=== PATIENT | female | born 1960 | race Caucasian/White ===

== ENCOUNTER 2016-08-02 14:19 | Inpatient (IN) | payer MEDICARE, MEDICAID ==
[2016-08-02] MEDS ORDERED: LORAZEPAM 2 MG/ML 1ML SDV ONE (15:19)
[2016-08-02 15:58] LABS: ABSOLUTE NEUTROPHIL COUNT 6.9 K/mm3 (1.8-7.7); BASO % 0.4 % (0.2-1.0); EOS # 0.1 (0.0-0.5); EOS % 0.9 % (0.9-2.9); HEMATOCRIT 30.3 % (37.0-47.0); HEMOGLOBIN 10.1 gm/l (12.0-16.0); IMM NEUT # 0.1 K/mm3 (0-0.2); IMM NEUT% 0.8 % (0-1); LYMPH # 1.8 (1.0-4.8); LYMPH % 19.5 % (15-45); MEAN CELL VOLUME 98.7 fl (81.0-99.0); MEAN CORPUSCULAR HEMOGLOBIN 32.9 pg (27.0-31.0); MEAN CORPUSCULAR HGB CONC 33.3 g/dl (33.0-37.0); MEAN PLATELET VOLUME 11.1 fl (7.4-10.4); MONO # 0.4 (0.0-0.8); MONO % 4.4 % (4-12); PLATELET COUNT 179 K/mm3 (130-400); RED CELL DISTRIBUTION WIDTH 13.3 % (11.5-14.5)
[2016-08-02 16:13] LABS: URINE BILIRUBIN NEGATIVE (NEGATIVE); URINE BLOOD TRACE (NEGATIVE); URINE GLUCOSE (UA) NEGATIVE (NEGATIVE); URINE LEUKOCYTE ESTERASE NEGATIVE (NEGATIVE); URINE NITRITE NEGATIVE (NEGATIVE); URINE PROTEIN 1+ (NEGATIVE); URINE UROBILINOGEN NORMAL (0-1 mg/dl)
[2016-08-02 16:18] LABS: ALB/GLOB RATIO 1.6 (>1.0); ALBUMIN 3.8 gm/dL (3.5-5.7); CALCIUM 8.9 mg/dL (8.6-10.3); MAGNESIUM 1.3 mg/dL (1.9-2.7)
[2016-08-02 16:21] LABS: URINE APPEARANCE CLEAR; URINE COLOR YELLOW
[2016-08-02 16:23] LABS: TROPONIN I 0.04 ng/ml (0.0-0.06)
[2016-08-02 16:27] LABS: CKMB ISOENZYME 26.6 ng/ml (0.6-6.3)
[2016-08-02 16:33] LABS: URINE BACTERIA RARE; URINE EPITHELIAL CELLS 0-2 /hpf; URINE RBC 0 /hpf; URINE WBC 0-2 /hpf
[2016-08-02 16:34] LABS: URINE AMORPHOUS SEDIMENT MODERATE; URINE CASTS FEW HYLINE CASTS /lpf
--- NOTE | 2016-08-02 16:54 | CT ---
HEAD W/O CON COMPARISON: None HISTORY: Altered mental status. Confusion. Past medical history of carcinoid tumor 2002 and sinus surgery 1991 TECHNIQUE: Using a [employer] Aquilion [address] scanner, images were obtained through the head. An automated dose reduction technique was used to minimize patient radiation dose. DOSE INFORMATION: CTDIvol (mGy): 51.70 DLP(mGycm): 938.90 FINDINGS: Mass: None Intracranial Hemorrhage: None Acute Infarction: None Cerebral hemispheres: Normal Basal ganglia: Normal Thalami: Normal Brainstem: Normal Cerebellum: Normal Ventricles: Normal Basilar cisterns: Normal Corpus callosum: Normal Pituitary fossa: Normal Middle ears and mastoid air cells: Normal Orbits and sinuses: Normal orbits. Postoperative changes in the paranasal sinuses. Skull and scalp: Normal Dural sinuses and vessels: Normal IMPRESSION: Normal study. Incidentally noted postoperative changes in the paranasal sinuses. The report was sent to the emergency department [employer] medical record system 08/02/2016 at 16:55
--- NOTE | 2016-08-02 16:54 | CT ---
ABD/PELVIS W/O CON COMPARISON: Ultrasound of the abdomen, 10/28/2007 HISTORY: Abdominal pain, confusion, and jaundice. Technique: Using a [employer] Aquilion [address] scanner, images were obtained from the diaphragm to the floor the pelvis. No intravenous contrast. An automated dose reduction technique was used to minimize patient radiation dose. Dose: CTDIvol (mGy): 34.20 DLP(mGycm): 1711.30 FINDINGS: Lung bases: Normal Inferior mediastinum and heart: Cardiomegaly. Liver: Normal Gallbladder: Distended. No stones. No wall thickening. No edema in the adjacent fat. Bile ducts: Normal. Pancreas: Normal Spleen: Normal Adrenal glands: Mild hypertrophy bilaterally. Kidneys: Bilateral vascular calcifications. Normal size and shape. No hydronephrosis. Ureters: Normal Urinary bladder: Normal Uterus and adnexa: Normal Blood vessels: Atherosclerosis of the aorta and branches in the abdomen and the pelvis. No aneurysm. Lymph nodes: Normal Stomach: Normal Duodenum: Normal Small intestine: Normal Appendix: Not visible. Colon: Normal Abdominal wall and supporting musculature: Fat-containing mild umbilical hernia. Bones: Degenerative changes throughout the spine. IMPRESSION: 1. No acute finding. 2. The gallbladder is distended without evidence of stones or inflammation. The bile ducts are not dilated. 3. Mild hypertrophy of the adrenal glands. 4. Atherosclerosis of the aorta and its branches in the abdomen and the pelvis. 5. Fat-containing umbilical hernia. 6. Nonvisualization of the appendix. Report was sent to the emergency department [employer] medical record system 08/02/2016 at 16:55
[2016-08-02] MEDS ORDERED: MAGNESIUM SULFATE 2 G/50 ML 50 ML IV ONE (17:30)
[2016-08-02] MEDS ORDERED: BLISTEX LIPSTICK 1 EACH TP PRN (19:29)
[2016-08-02] MEDS ORDERED: MENTHOL/CETYLPYRD 1 EACH LOZENGE PO PRN (19:29)
[2016-08-02] MEDS ORDERED: MAGNESIUM HYDROXIDE 30 ML UDCUP PO PRN (19:29)
[2016-08-02] MEDS ORDERED: SODIUM CHLORIDE 0.9% 100 ML IV PRN (19:29)
[2016-08-02] MEDS ORDERED: BISACODYL 5 MG TABLET.EC PO PRN (19:29)
[2016-08-02] MEDS ORDERED: BISACODYL 10 MG SUP PR PRN (19:29)
[2016-08-02] MEDS ORDERED: SODIUM CHLORIDE 0.9% 1,000 ML IV SCH (19:30)
[2016-08-02 20:28] LABS: INR 0.96; PROTHROMBIN TIME 10.1 SECONDS (9.3-11.4)
[2016-08-02] MEDS ORDERED: PUMP TUBING ONE (20:31)
[2016-08-02 20:39] LABS: AMPHETAMINES/METHAMPHETAMINES POSITIVE (NEGATIVE); COCAINE NEGATIVE (NEGATIVE); MARIJUANA POSITIVE (NEGATIVE); METHADONE NEGATIVE (NEGATIVE); OPIATES NEGATIVE (NEGATIVE); TRICYCLIC ANTIDEPRESSANTS NEGATIVE (NEGATIVE)
[2016-08-02 20:50] VITALS: BMI 39.9
[2016-08-02] MEDS ORDERED: HALOPERIDOL LACTATE 5 MG/1 ML AMP IV PRN (22:08)
[2016-08-02] MEDS: POTASSIUM CHLORIDE 10 MEQ in SODIUM CHLORIDE 0.9% 1,000 ML IV SCH (22:15)
[2016-08-02] MEDS: DOCUSATE SODIUM 100 MG CAPSULE PO SCH (22:16)
[2016-08-02] MEDS: CLOTRIMAZOLE 1% 15 APPLIC/15 G CREAM TP SCH (22:44)
[2016-08-03] MEDS: POTASSIUM CHLORIDE 10 MEQ in SODIUM CHLORIDE 0.9% 1,000 ML IV SCH ×3 (02:41→08:37)
[2016-08-03] MEDS ORDERED: METOPROLOL TARTRATE 1 MG/ML 5ML VIAL ONE (02:43)
[2016-08-03] MEDS ORDERED: OXYCODONE HCL 5 MG TABLET PO ONE (05:39)
[2016-08-03] MEDS ORDERED: METOPROLOL TARTRATE 1 MG/ML 5ML VIAL IV SCH ×2 (06:00→09:00)
[2016-08-03] MEDS ORDERED: FLU VACC 2016-17 (36MO-64Y)/PF 60 MCG/0.5 ML SYRINGE IM V ONE (07:14)
[2016-08-03] MEDS ORDERED: PNEUMOCOCCAL 23-VAL P-SAC VAC 0.5 ML VIAL IM V ONE (07:14)
--- NOTE | 2016-08-03 07:25 | HP ---
ALLEN VALDEZ [id number] : 60 DATE OF ADMISSION: August 02, 2016 IDENTIFICATION: Ms. Valdez is a 56-year-old followed by Krystal Soto M.D. CHIEF COMPLAINT: Altered mental status. HISTORY OF PRESENT ILLNESS: Ms. Valdez was brought to the [facility] Emergency Room by her roommates due to report of delusions. She has apparently been thinking her cat has when her cat is alive and well sitting next to her. She has reportedly had difficulty tracking conversation. At the time of my exam, she is really unable to provide any history. She is somnolent, rouses and mumbles responses, mostly unintelligible. This is after receiving 2 mg of lorazepam in the emergency department. On workup in the emergency department, she was found to have acute kidney injury, hypokalemia, hypomagnesemia, anemia, rhabdomyolysis and elevated liver enzymes. She was treated only with IV magnesium and lorazepam and then referred to the hospitalist service. REVIEW OF SYSTEMS: Unable to obtain due to the patient's mental status. PAST MEDICAL HISTORY: Is limited, however, previous records indicate: 1. She had a carcinoid tumor excised in 2002. 2. Reported hypertension. 3. Reported hypothyroidism. 4. She does have obesity. PAST SURGICAL HISTORY: 1. Carcinoid tumor excision [id number]. I am not aware of the location of that tumor. 2. Sinus surgery in 1991. 3. Likely appendectomy. ALLERGIES: REPORTED TO MULTIPLE MEDICATIONS INCLUDIN. ASPIRIN. 2. IBUPROFEN. 3. CODEINE. 4. NEURONTIN. 5. SULFA DRUGS. CURRENT MEDICATIONS: Unknown. She has previously been treated with metoprolol. HABITS: Emergency room records indicate marijuana and tobacco use and social alcohol use. SOCIAL HISTORY: She lives in a house in [place] with housemates. fishing worker in the emergency department spoke with the patient's roommate, Demetris Smith, who reported that patient's mental health has been declining for at least two weeks. That she has been talking to the wall and isolating herself. A Home Health provider from [facility], Shilpa, reported that patient has not slept for three days and has been delusional. There is also suggestion that she has been referred to Hospice. I did place a call to [facility]. She is not on service with them either for Hospice or palliative care. FAMILY HISTORY: Unknown. PHYSICAL EXAMINATION: GENERAL: This is an obese, somnolent 56-year-old. She does appear jaundiced. As above, she rouses to questions, mumbles answers, partially follows directions, but is mostly unintelligible. HEENT: Atraumatic. She does not keep her eyes open for exam. Oropharynx appears moist. CHEST: Clear with poor air movement. HEART: Regular. ABDOMEN: Obese, soft. Appears to have mild diffuse tenderness, no guarding or rebound. Liver is palpably enlarged. Bowel sounds are active. EXTREMITIES: Trace peripheral pulses, no edema. INTEGUMENT: She is jaundiced and has petechiae on her abdomen and arms, erythema on the medial thighs, lower extremities and extremely thick calluses on the bottoms of the feet as well as onychomycosis. NEUROLOGIC: She does move all of her extremities to command but does not otherwise participate with exam. LABORATORY DATA: White blood cell count is 9.3, hemoglobin and hematocrit 10.1 and 30.3, platelets 179. Lactate 1.1, sodium 137, potassium low at 2.9, chloride 98, CO2 27, BUN 28, creatinine 2.6, glucose 112, magnesium is 1.3, total bilirubin 2.5, AST 81, ALT 202, alkaline phosphatase 132, CPK is elevated at 963, MB fraction 26.6, troponin I is 0.04. Protein is low at 6.2, albumin 3.8, lipase normal at 11. Ammonia level is pending. TSH is pending. Prothrombin time pending. Drug screen on the urine and acute viral hepatitis panel are pending. Urinalysis, specific gravity 1.020, 1+ protein, negative glucose and ketones, negative nitrite and leukocyte esterase. There are a few hyaline casts. RADIOLOGY: 1. CT of the brain is normal with incidental note of previous sinus surgery. 2. CT of the abdomen and pelvis is non-acute. There is gallbladder distention without biliary duct distention and no stones. Mild adrenal gland hypertrophy. Atherosclerosis. Fat containing umbilical hernia. Absent appendix. ASSESSMENT: Ms. Valdez is a 56-year-old who presents with acute metabolic encephalopathy of uncertain etiology. She has acute kidney injury, rhabdomyolysis, hypokalemia, hypomagnesemia, acute hepatitis and anemia. She has underlying obesity with a history of hypothyroidism and carcinoid tumor and extensive dermatitis. PLAN: 1. Admit to medical/surgical floor. 2. IV hydration with normal saline and gentle potassium replacement given her acute renal failure. 3. Follow up on pending laboratories as noted above. 4. Repeat chemistry panel, CBC, magnesium and CPK in the morning. 5. Social work consult. She may need psychiatric care once her acute medical issues have improved. 6. Code status is unidentified and will therefore be FULL CODE by default. 7. Venous thromboembolism prophylaxis with mechanical means only. Given her renal failure, pharmacologic treatment is contraindicated. cc: Krystal Soto M.D.
[2016-08-03] MEDS: CLOTRIMAZOLE 1% 15 APPLIC/15 G CREAM TP SCH (08:50)
[2016-08-03] MEDS: DOCUSATE SODIUM 100 MG CAPSULE PO SCH (08:56)
[2016-08-03] MEDS ORDERED: LEVOTHYROXINE SODIUM 100 MCG VIAL IV SCH (10:00)
[2016-08-03 12:29] VITALS: BP 149/98
[2016-08-03 12:38] LABS: ABSOLUTE NEUTROPHIL COUNT 8.9 K/mm3 (1.8-7.7); BASO # 0.1 K/mm3 (0.0-0.2); BASO % 0.7 % (0.2-1.0); EOS # 0.1 (0.0-0.5); HEMOGLOBIN 10.9 gm/l (12.0-16.0); IMM NEUT # 0.1 K/mm3 (0-0.2); IMM NEUT% 0.7 % (0-1); LYMPH # 2.4 (1.0-4.8); LYMPH % 20.2 % (15-45); MEAN CELL VOLUME 103.2 fl (81.0-99.0); MEAN CORPUSCULAR HEMOGLOBIN 32.2 pg (27.0-31.0); MEAN CORPUSCULAR HGB CONC 31.1 g/dl (33.0-37.0); MEAN PLATELET VOLUME 11.2 fl (7.4-10.4); MONO # 0.5 (0.0-0.8); MONO % 4.1 % (4-12); NEUT % 73.3 % (43-75); PLATELET COUNT 217 K/mm3 (130-400); RED CELL DISTRIBUTION WIDTH 13.7 % (11.5-14.5)
[2016-08-03 12:49] LABS: ALB/GLOB RATIO 1.4 (>1.0); ALBUMIN 3.8 gm/dL (3.5-5.7); CALCIUM 8.1 mg/dL (8.6-10.3); MAGNESIUM 1.9 mg/dL (1.9-2.7)
[2016-08-03] MEDS ORDERED: AMLODIPINE BESYLATE 5 MG TABLET PO ONE (14:52)
[2016-08-03] MEDS ORDERED: POTASSIUM CHLORIDE 20 MEQ TAB.PRT.SR PO ONE (14:59)
--- NOTE | 2016-08-03 18:54 | DS ---
ALLEN VALDEZ [id number] DATE OF ADMISSION: August 02, 2016 DATE OF DISCHARGE: August 03, 2016 DISCHARGE DIAGNOSES: Acute metabolic encephalopathy, multifactorial, probably due to sleep deprivation and methamphetamine abuse. OTHER DIAGNOSES: Include: 1. Acute hepatitis, etiology unclear. 2. Acute kidney injury likely due to dehydration. 3. Mild rhabdomyolysis. 4. Hypokalemia. 5. Hypomagnesemia. 6. Mild macrocytic anemia. 7. Tinea cruris. SUMMARY OF ADMISSION AND HOSPITAL COURSE: The patient is a 56-year-old female brought to the [facility] Emergency Department because of some delusional behavior and somnolence while at home. Workup in the emergency department showed her to be somnolent and mostly unintelligible. She received some lorazepam and workup showed evidence of acute kidney injury with a creatinine elevated 2.6 and elevation in her transaminase levels with a total bilirubin of 2.5, AST of 81, ALT of 202. Cardiac enzymes were negative. Ammonia level was normal, and a TSH level was markedly elevated off the scale at over 100. She was admitted by the hospitalist service. She was hydrated and with hydration alone along with potassium replacement and a good night's sleep, she had improvement in her encephalopathy. The following day she was alert and oriented and insisted on being discharged. She did receive a dose of levothyroxine 200 mcg IV and some additional potassium replacement. She was evaluated by our physical therapy and occupational therapy department and shown to be independent with her activities of daily living. Her creatinine had improved from 2.6 down to 1.8 with hydration. Potassium had increased from 2.9 up to 3.4 with replacement. CPK level had decreased from 963 down to 575 with hydration. Her hemoglobin remained stable and was up to 10.9 on the day of discharge. Urinalysis was negative for any evidence of infection. She had a CT of her abdomen and pelvis on admission showing no acute abnormalities. Gallbladder was slightly distended but no stones or biliary duct dilation was seen. CT of the brain showed no acute abnormalities. She was essentially medically stable on August 03, 2016. I had anticipated keeping her another day to await her hepatitis serologies and follow her liver function tests, but the patient's insistence on going home led me to discharge her after physical therapy evaluations. She has ongoing social concerns about medication compliance. I was unable to confirm her thyroid medication dose, but she discharged with her son who will check her medications at home. She is also getting a Home Health referral for nursing, social work case manager to assess medication compliances and her living situation. PHYSICAL EXAM: VITAL SIGNS: Her discharge vital signs showed a temperature of 98.3, pulse 65, blood pressure is 149/98, respirations 18, oxygen saturation 96% on room air. Body mass index 39.2. Weight 94 kilograms. GENERAL: This is an obese female in no acute distress. HEENT: Is unremarkable. NECK: Supple without lymphadenopathy or thyromegaly. LUNGS: Are clear to auscultation bilaterally. CARDIOVASCULAR: Exam reveals a regular rate and rhythm without a murmur. ABDOMEN: Is soft, nontender, nondistended with positive bowel sounds. EXTREMITIES: Show mild nonpitting edema. LABORATORY STUDIES: Showed a TSH level over 100, creatinine of 1.8, potassium 3.4, total bilirubin 2.4, AST down to 72, ALT down to 174. Laboratory studies pending at the time of this dictation is an acute hepatitis series. DISPOSITION: Home. REFERRALS: Referral was made to [facility] as stated above. She is instructed to follow up with her primary care physician, Rosetta Mittal with the [facility]. DISCHARGE MEDICATIONS: 1. I did not prescribe levothyroxine because the patient states she has plenty of bottles at home. I believe the correct dose is 150 mcg daily. 2. Clotrimazole 1% cream applied to skin folds twice daily for four to six weeks. DISCHARGE CONDITION: Fair. Cc: Elsi Jennings.
[2016-08-04] MEDS ORDERED: AMLODIPINE BESYLATE 5 MG TABLET PO SCH (09:00)
[2016-08-05 13:04] LABS: HEP B CORE AB, IGM Non React (Non React); HEPATITIS B SURFACE AG Non React (Non React); HEPATITIS C ANTIBODY Non React (Non React)
== END 2016-08-03 14:30 | disposition home health service (06) | DRG 71 ==
LOC: ED 14:19 → MS 18:53
PROVIDERS: ADMIT Family Medicine; ATTEND Family Medicine
DX: G93.41 Metabolic encephalopathy (principal); F15.20 Other stimulant dependence, uncomplicated; M62.82 Rhabdomyolysis; N17.9 Acute kidney failure, unspecified; E87.6 Hypokalemia; E83.42 Hypomagnesemia; D53.9 Nutritional anemia, unspecified; B35.6 Tinea cruris; E03.9 Hypothyroidism, unspecified; I70.90 Unspecified atherosclerosis; K42.9 Umbilical hernia without obstruction or gangrene; E66.9 Obesity, unspecified; I10 Essential (primary) hypertension

== ENCOUNTER 2016-10-30 18:03 | Emergency (ER) | payer MEDICARE, OTHER ==
[2016-10-30] MEDS ORDERED: HALOPERIDOL LACTATE 5 MG/1 ML AMP ONE (18:50)
[2016-10-30] MEDS ORDERED: METOPROLOL TARTRATE 50 MG TABLET ONE ×2 (18:50→19:07)
[2016-10-30] MEDS ORDERED: METHYLPRED SOD SUCCINATE 125 MG VIAL ONE (18:50)
[2016-10-30] MEDS ORDERED: DIPHENHYDRAMINE HCL 50 MG/1 ML VIAL ONE (18:50)
[2016-10-30 19:24] LABS: ALB/GLOB RATIO 1.4 (>1.0); ALBUMIN 4.2 gm/dL (3.5-5.7); CALCIUM 9.6 mg/dL (8.6-10.3)
[2016-10-30 19:33] LABS: ABSOLUTE NEUTROPHIL COUNT 5.3 K/mm3 (1.8-7.7); BASO # 0.1 K/mm3 (0.0-0.2); BASO % 0.5 % (0.2-1.0); EOS # 0.2 (0.0-0.5); EOS % 1.7 % (0.9-2.9); HEMOGLOBIN 16.1 gm/l (12.0-16.0); IMM NEUT% 0.2 % (0-1); LYMPH # 3.5 (1.0-4.8); LYMPH % 37.8 % (15-45); MEAN CELL VOLUME 93.2 fl (81.0-99.0); MEAN CORPUSCULAR HEMOGLOBIN 30.6 pg (27.0-31.0); MEAN CORPUSCULAR HGB CONC 32.9 g/dl (33.0-37.0); MEAN PLATELET VOLUME 10.1 fl (7.4-10.4); MONO # 0.3 (0.0-0.8); MONO % 2.9 % (4-12); NEUT % 56.9 % (43-75); PLATELET COUNT 262 K/mm3 (130-400); RED CELL DISTRIBUTION WIDTH 12.1 % (11.5-14.5)
[2016-10-30 19:40] LABS: PH,URINE 6.5 (5.0-8.0); URINE BILIRUBIN NEGATIVE (NEGATIVE); URINE BLOOD NEGATIVE (NEGATIVE); URINE GLUCOSE (UA) NEGATIVE (NEGATIVE); URINE LEUKOCYTE ESTERASE NEGATIVE (NEGATIVE); URINE NITRITE NEGATIVE (NEGATIVE); URINE PROTEIN NEGATIVE (NEGATIVE); URINE UROBILINOGEN NORMAL (0-1 mg/dl)
[2016-10-30 19:52] LABS: URINE APPEARANCE CLEAR; URINE COLOR STRAW
[2016-10-30 20:18] LABS: AMPHETAMINES/METHAMPHETAMINES POSITIVE (NEGATIVE); COCAINE NEGATIVE (NEGATIVE); MARIJUANA NEGATIVE (NEGATIVE); METHADONE NEGATIVE (NEGATIVE); OPIATES NEGATIVE (NEGATIVE); TRICYCLIC ANTIDEPRESSANTS POSITIVE (NEGATIVE)
== END 2016-10-30 20:51 | disposition home or self-care (01) ==
LOC: ED 18:03
DX: R10.30 Lower abdominal pain, unspecified (principal); M54.5 Low back pain; I10 Essential (primary) hypertension; E03.9 Hypothyroidism, unspecified; F15.10 Other stimulant abuse, uncomplicated; Z91.19 Patient's noncompliance with other medical treatment and regimen
CPT/HCPCS: 85025; 82550; 80305; 80053; 85651; 81003; 84484; 96375 ×2; 99284 ×2; 96374; 51702; J1200; J1630; A9270 ×2; J2930